=== PATIENT | male | born 1990 | race Caucasian/White ===

== ENCOUNTER 2017-04-29 11:41 | Emergency (ER) | payer OTHER ==
[~2017-04-29 11:41] MED LIST: BACTRIM DS 8001 TA1 PO; FLEXERIL5 MG PO; MOTRIN800 MG PO; ULTRAM50 MG PO
== END 2017-04-29 12:43 | disposition home or self-care (01) ==
LOC: ED 11:41
DX: M54.2 Cervicalgia (principal); M25.511 Pain in right shoulder